=== PATIENT | female | born 1975 | race African-American/Black ===

== ENCOUNTER 2016-10-05 19:50 | Emergency (ER) | payer OTHER ==
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
[2016-10-05 22:08] VITALS: BP 129/85
== END 2016-10-05 22:00 | disposition home or self-care (01) ==
LOC: ER 19:50
DX: S90.02XA Contusion of left ankle, initial encounter (principal); M25.572 Pain in left ankle and joints of left foot; M54.2 Cervicalgia; M25.512 Pain in left shoulder; V49.50XA Passenger injured in collision with unspecified motor vehicles in traffic accident, initial encounter
CPT/HCPCS: 99283

== ENCOUNTER 2019-03-19 18:23 | Emergency (ER) | payer OTHER ==
[2019-03-19] MEDS ORDERED: MORPHINE SULFATE 10 MG/ML INJ IV ONE (19:35)
[2019-03-19] MEDS ORDERED: ONDANSETRON HCL INJ/PF 4 MG/2 ML SDV IV ONE (19:36)
[2019-03-19] MEDS ORDERED: DIPH/PERTUSS(ACELL)/TETANUS VAC/PF 0.5 ML SYR (>=10YO) IM ONE (19:42)
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
[2019-03-19] MEDS ORDERED: HYDROMORPHONE HCL INJ/PF 2 MG/ML AMPULE IV ONE (21:26)
[2019-03-19] MEDS ORDERED: SILVER SULFADIAZINE 1% CREAM 25 GM TP ONE (21:26)
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
[2019-03-19 22:17] VITALS: BP 107/76
== END 2019-03-19 22:41 | disposition home or self-care (01) ==
LOC: ER 18:23
DX: T21.11XA Burn of first degree of chest wall, initial encounter (principal); T22.231A Burn of second degree of right upper arm, initial encounter; X15.8XXA Contact with other hot household appliances, initial encounter; Y93.G3 Activity, cooking and baking; F17.200 Nicotine dependence, unspecified, uncomplicated; Z88.0 Allergy status to penicillin; Z23 Encounter for immunization
CPT/HCPCS: 99283; 90471; 96374; 96375; 90715; J2270; J1170; J2405